=== PATIENT | female | born 1985 | race Caucasian/White ===

== ENCOUNTER 2025-01-12 09:44 | Outpatient (AMB) | payer BC, SELFPAY ==
--- NOTE | 2025-01-12 09:52 | A.OFFVIS_ITS ---
Vital Signs 01/12/25 09:58 Weight 143 lb BP 90/70 Blood Pressure Location Rt brachial Position Sitting Pulse 61 Pulse Source Pulse Oximeter Pulse Oximetry (%) 98 Oxygen Delivery Method Room Air Intake Visit Reasons: ENP - Tremors Intake Note: NPV referred by PCP Josh Abernathy for tremors. Facial twitching and memory issues Glass Blower Required: No Accompanied by: Self / Same As Patient Allergies No Known Allergies Allergy (Verified 01/12/25 09:58) HPI Comments Details: 39y/o Right handed female comes for evaluation of tremors in her hands for about 3 years. she reports at rest action and posture. she also feels twitch in her body when relaxing she started noticing some eyelid twitches 1 year ago and started feeling right face contractions 1 mths ago. she denies voice tremors but says she started stuttering . No leg or head tremors she denies naxiety or depression . she sleeps good. No fh/o tremors No head injury She was trie don propranalol but she did not tolerate it. she works as a school guard -one day she forget her schedule ( is concerned about cognitive issues). she also describes an episode where she forgot that she was helping her with house work . she harsh nxious because she recently realized that people are notcing her tremors now. [facility] Medical History (Updated 01/12/25 @ 10:43 by Adriana Goldman MD) Coarse tremors GERD (gastroesophageal reflux disease) Vitamin D deficiency Tremor Physical Exam Vital Signs: Last Vital Signs Pulse 61 01/12/25 09:58 BP 90/70 01/12/25 09:58 Pulse Ox 98 01/12/25 09:58 Oxygen Delivery Method Room Air 01/12/25 09:58 Const General: cooperative, healthy appearing, comfortable and no acute distress Nutritional Appearance: average body habitus Orientation/consciousness: patient oriented x3 Eyes Pupils: Equal, round and reactive pupils present Neuro Other: mild voice tremors mild postural and action tremors fermín hands General: patient oriented x3, gait normal, tone normal and no focal motor deficits Cranial nerves: Yes Facial sensation intact/muscles of mastication intact, Yes Equal, round and reactive pupils present, Yes Bilaterally intact EOM present, Yes Nystagmus not present, Yes Normal facial strength present, Yes Midline tongue present, Yes Symmetric palate elevation present and Yes Ability to bilaterally elevate shoulders present Cognition (Neuro): normal cognition Gait exam (Neuro): Normal gait present Motor exam (neuro): 5/5 motor strength present throughout and Normal motor muscle tone present throughout Deep tendon reflexes (DTR's): Right triceps reflex intensity grade: 1+, Left triceps reflex intensity grade: 1+, Rt Biceps (C5, C6): 1+, Left biceps reflex intensity grade: 1+, Right brachioradialis reflex intensity grade: 1+, Left brachioradialis reflex intensity grade: 1+ and Right patellar reflex intensity grade: 1+ Coordination: [id number] test normal Psych Appearance: grossly normal Assessment & Plan Assessment & Plan (1) Coarse tremors: Comment: exaggerated physiologicla tremors Code(s): G25.2 - Other specified forms of tremor Category: Medical Plan I will trial her on gabapentin 100mg 1-3 caps qhs Will monitor her facial twitching and cognitive issues clinically CT ayla was normal Medications: New gabapentin 1-3 caps orally bedtime; 90 caps 3RF Coding Level of Care Code New Pt Level 4 (77193) Diagnoses Coarse tremors G25.2
[2025-01-12 09:58] VITALS: BP 90/70; PULSE 61; O2SAT 98
--- OUTSIDE RECORDS SUMMARY | 2025-01-12 10:14 | XMS_ITS | Clinical Summary ---
Author Organization [place] [id number] [address] [facility] Building Address [address] [place] [phone] Phone Care Team Providers Care [employer] Name Role Phone Josh Abernathy MD Primary Care Provider [phone] Allergies No known active allergies Medications levonorgestreL (MIRENA) 21 mcg/24hr (up to 8 yrs) 52 mg IUD 1 Device (1 each total) by intrauterine route 1 (one) time. Active Active Problems Problem Noted Date Diagnosed Date COVID-19 02/10/2021 Overview (06/02/2024): Last Assessment & Plan: DX: 02/10/21 Skin abscess 02/26/2017 Overview (06/02/2024): Recurrent GERD (gastroesophageal reflux disease) 7 Overview (06/02/2024): + H pylori 2009, Negative 2012 Encounters Date Type Department Care Team Description 12/08/2024 8:19 AM EDT - 12/08/2024 11:59 PM EDT Hospital Encounter CT Scan - [address] [phone] Gait instability Discharge Disposition: Home or Self Care 12/07/2024 8:30 AM EDT Office Visit Internal Medicine - [address] [phone] Josh Abernathy MD Adult general medical examination (Primary Dx); Screening for deficiency anemia; Screening for hyperlipidemia; Screening for diabetes mellitus; Screening for thyroid disorder; Gait instability from Last 3 Months Immunizations Name Administration Dates Next Due DTP 1985,1985,1985 DTaP (Infanrix) 6wks to less than 7yo 06/01/1990 ,09/21/1986 [id number] (Pentacel) 2mo to less than 5yo 03/05/1988 Hepatitis B Pediatric (Enger ix B; Recombivax HB) to less than 20 yo 02/21/1997,05/16/1996,03/04/1996 IPV Inactivated polio (Ipol) 6wks and older 06/01/1990,09/21/1986,1985,1984 MMR, measles mumps and rubel la Live (Priorix; M-M-R II) 12mo and older 03/04/1996,09/21/1986 Td Tetanus diptheria (Tdvax) 7yo and older 02/20/1998 Tdap Tetanus diptheria acell ular pertussis (Boostrix; Adacel) 7yo and older 12/07/2024,04/18/2009 Varicella live (Varivax) 12m o and older 04/18/2009 Surgical History Surgery Date Site/Laterality Comments WISDOM TOOTH EXTRACTION PROCEDURE: HISTORICAL WISDOM TEETH EXTRACTION Medical History Medical History Date Comments GERD (gastroesophageal reflux disease) 01/28/2017 DX:GERD (gastroesophageal reflux disease) H/O Clostridium difficile infection 02/26/2017 DX:H/O Clostridium difficile infection Skin abscess 02/26/2017 DX:Skin abscess; COMMENT: Recurrent Family History Medical History Relation Name Comments Breast cancer Aunt 1 paternal, diag in 40's Breast cancer Aunt 2 paternal, dx i n 40's Diabetes Aunt 3 maternal, HTN Diabetes Aunt 4 maternal Diabetes Aunt 5 paternal No Known Problems Daughter Diabetes Maternal Grandmother CAD, HT N, Hyperlipidemia Hypertension Maternal Grandmother Anemia Mother Depression Mother Migraines, fibr omyalgia [Other] No Known Problems Other Breast cancer Paternal Grandmother i n her 70's No Known Problems Son 1 No Known Problems Son 2 No Known Problems Uncle Blindness Neg Hx Cataracts Neg Hx Glaucoma Neg Hx Macular degeneration Neg Hx Strabismus Neg Hx Relation Name Status Comments Aunt 1 Alive Aunt 2 Alive Aunt 3 Alive Aunt 4 Alive Aunt 5 Alive Daughter Maternal Grandmother Alive Mother Alive Other Paternal Grandmother Son 1 Alive Son 2 Alive Uncle Social History Tobacco Use Types Packs/Day Years Used Date Smoking Tobacco: Never Smokeless Tobacco: Never Tobacco Cessation:Counseling Given: Not Answered Alcohol Use Standard Drinks/Week Comments Yes 0 (1 standard drink = 0.6 oz pur e alcohol) Comments No Sex and Gender Information Value Date Recorded Sex Assigned at Not on file Legal Sex Female 1:55 AM EST Gender Identity Not on file Sexual Orientation Not on file Obstetrics History Last Filed Vital Signs Vital Sign Reading Time Taken Comments Blood Pressure 94/68 12/07/2024 8:24 AM EDT Pulse 66 12/07/2024 8:24 AM EDT Temperature - - Respiratory Rate - - Oxygen Saturation - - Inhaled Oxygen Concentration - - Weight 64.7 kg (142 lb 11.2 oz) 12/07/2024 8:24 AM EDT Height 149.9 cm (4' 11 ) 12/07/2024 8:24 AM EDT Body Mass Index 28.82 12/07/2024 8:24 AM EDT Plan of Treatment Upcoming Encounters Date Type Department Care Team (Late st Contact Info) Description 06/12/2025 11:00 AM EST Office Visit Internal Medicine - [address] [phone] Josh Abernathy MD [address] [place] [phone] Health Maintenance Due Date Last Done Comments HIV Screening 05/18/2022 Hepatitis C Screening 05/18/2022 Social Influencers of Health Screening 05/18/2022 COVID-19 Vaccine ( season) 2024 11/14/2020, 10/16/2020 Depression Screening 06/15/2024 06/04/2023 Influenza Vaccine (#1) 2025 Cervical Cancer Screening: HPV 08/26/2028 08/27/2023 Cholesterol Screening (Lipid Panel) 12/07/2029 12/07/2024, 06/05/2023 DTaP,Tdap,and Td Vaccines (9 - Td or Tdap) 12/07/2034 12/07/2024, 04/18/2009, 02/20/1998, Additional history exists HIB Vaccines Completed 03/05/1988 IPV Vaccines Completed 06/01/1990, 02/14, 09/21/1986, Additional history exists MMR Vaccines Completed 03/04/1996, 09/21/1986 Hepatitis B Vaccines Completed 02/21/1997, 05/16/1996, 03/04/1996 Varicella Vaccines Aged Out 04/18/2009 No longer eligible based on patient's age to complete this topic HPV Vaccines Aged Out No longer eligi ble based on patient's age to complete this topic Hepatitis A Vaccines Aged Out No long er eligible based on patient's age to complete this topic Meningococcal ACWY Vaccine Aged Out N o longer eligible based on patient's age to complete this topic Meningococcal B Vaccine Aged Out No l onger eligible based on patient's age to complete this topic Pneumococcal Vaccine: Pediatrics (0 to 5 Years) and At-Risk Patients (6 to 49 Years) Aged Out No longer eligible based on patient's age to complete this topic RSV Immunization Patients Under 20 months Aged Out No longer eligible based on patient's age to complete this topic Procedures Procedure Name Priority Date/Time Associated Diagnosis Comments CT HEAD WO CONTRAST Routine 12/08/2024 8 :29 AM EDT Gait instability COMPLETE BLOOD COUNT Routine 12/07/2024 9:05 AM EDT Screening for deficiency anemia COMPREHENSIVE METABOLIC PANEL Routine 12/07/2024 9:05 AM EDT Screening for diabetes mellitus LIPID PANEL WITH REFLEX TO DIRECT LDL Routine 12/07/2024 9:05 AM EDT Screening for hyperlipidemia THYROID STIMULATING HORMONE WITH REFLEX TO FREE T4 AND FREE T3 Routine 12/07/2024 9:05 AM EDT Screening for thyroid disorder HM HPV Routine 08/27/2023 HM DEPRESSION SCREENING Routine 06/04/2023 from Last 3 Months or Most Recently Relevant to Health Maintenance Results * CT Head wo Contrast (12/08/2024 8:29 AM EDT) Anatomical Region Laterality Modality Head and Neck Computed Tomogra phy 12/08/2024 8:55 AM EDT Impressions 12/09/2024 10:02 AM EDT No evidence of intracranial hemorrhage, acute territorial infarction, mass, or mass effect. POS - [id number] -------- FINAL REPORT -------- Dictated By: Sonali Alvarez Dictated Date: 12/08/2024 08:55 ET Assigned Physician: Sonali Alvarez Reviewed and Electronically Signed By: Sonali Alvarez Signed Date: 12/09/2024 10:02 ET Workstation ID: [id number] Transcribed By: Self Edit Transcribed Date: 12/08/2024 09:07 ET Narrative 12/09/2024 10:02 AM EDT EXAM: HEAD CT HISTORY: Gait instability. Tremor. Dysarthria. COMPARISON: None TECHNIQUE: Nonenhanced head CT from skull base to vertex with multi-planar reformats. Manual dose reduction technique tailored for patient and site of imaging. TOTAL CTDIvol: 67.46 mGy FINDINGS: No evidence of intracranial hemorrhage or an acute territorial infarction. Ya-white matter differentiation appears preserved. No evidence of a mass, mass effect, or midline shift. No hydrocephalus. Basal cisterns are patent. No cerebellar ectopia. Pituitary gland is not enlarged. No acute fracture or destructive bone lesion. Minimal mucosal thickening in the partially imaged ethmoid sinuses.. Mastoid air cells are clear. Procedure Note Sonali Alvarez MD - 12/09/2024 EXAM: HEAD CT HISTORY: Gait instability. Tremor. Dysarthria. COMPARISON: None TECHNIQUE: Nonenhanced head CT from skull base to vertex with multi- planarreformats. Manual dose reduction technique tailored for patient and siteof imaging. TOTAL CTDIvol: 67.46 mGy FINDINGS: No evidence of intracranial hemorrhage or an acute territorial infarction.Ya- white matter differentiation appears preserved. No evidence of a mass, mass effect, or midline shift. No hydrocephalus.Basal cisterns are patent. No cerebellar ectopia. Pituitary gland is notenlarged. No acute fracture or destructive bone lesion. Minimal mucosal thickeningin the partially imaged ethmoid sinuses.. Mastoid air cells are clear. IMPRESSION: No evidence of intracranial hemorrhage, acute territorial infarction,mass, or mass effect. POS - [id number] -------- FINAL REPORT -------- Dictated By: Sonali Alvarez Dictated Date: 12/08/2024 08:55 ET Assigned Physician: Sonali Alvarez Reviewed and Electronically Signed By: Sonali Alvarez Signed Date: 12/09/2024 10:02 ET Workstation ID: [id number] Transcribed By: Self Edit Transcribed Date: 12/08/2024 09:07 ET us Josh Abernathy MD IMG CT PROCEDURES Final Result * Thyroid stimulating hormone with reflex to free t4 and free t3 (12/07/2024 9:05 AM EDT) TSH 1.18 0.40 - 4.00 mcIU/mL LAB CHEMISTRY METHOD 12/07/2024 4:[address] [facility] Blood Venous blood specimen / Unknown Venipuncture / Unknown 12/07/2024 9:05 AM EDT 12/07/2024 9:05 AM EDT us Josh Abernathy MD LAB BLOOD ORDERABLES Final Res ult [facility] [address] [place] [address], [place] [phone] * (ABNORMAL) Lipid panel with reflex to direct LDL (12/07/2024 9:05 AM EDT) Cholesterol 182 0 - 200 mg/dL LAB CHEMISTRY METHOD 12/07/2024 3:[address] [facility] Triglycerides 80 0 - 150 mg/dL LAB CHEMISTRY METHOD 12/07/2024 3:[address] [facility] HDL 52 >=40 mg/dL LAB CHEMISTRY METHOD 12/07/2024 3:[address] [facility] LDL Calculated 114(H) 0 - 100 mg/dL LAB CHEMISTRY METHOD 12/07/2024 3:[address] [facility] VLDL Cholesterol Grupo 16 mg/dL LAB CHEMISTRY METHOD 12/07/2024 3:[address] [facility] Non HDL Chol. (LDL+VLDL) 130 <145 mg/dL LAB CHEMISTRY METHOD 12/07/2024 3:[address] [facility] Chol/HDL Ratio 3.5 0.0 - 4.4 LAB CHEMISTRY METHOD 12/07/2024 3:[address] [facility] Blood Venous blood specimen / Unknown Venipuncture / Unknown 12/07/2024 9:05 AM EDT 12/07/2024 9:05 AM EDT us Josh Abernathy MD LAB BLOOD ORDERABLES Final Res ult [facility] [address] [place] [address], [place] [phone] * (ABNORMAL) Complete blood count (12/07/2024 9:05 AM EDT) WBC 5.5 4.8 - 10.8 K/mcL LAB HEMETOLOGY METHOD 12/07/2024 12:[address] [facility] RBC 5.00(H) 3.80 - 4.80 M/mcL LAB HEMETOLOGY METHOD 12/07/2024 12:[address] [facility] Hemoglobin 13.6 11.5 - 16.0 g/dL LAB HEMETOLOGY METHOD 12/07/2024 12:[address] [facility] Hematocrit 42.8 35.0 - 47.0 % LAB HEMETOLOGY METHOD 12/07/2024 12:[address] [facility] MCV 85.3 79.0 - 98.0 FL LAB HEMETOLOGY METHOD 12/07/2024 12:[address] [facility] MCH 27.1 27.0 - 32.0 pcg LAB HEMETOLOGY METHOD 12/07/2024 12:[address] [facility] MCHC 31.8(L) 32.0 - 37.0 g/dL LAB HEMETOLOGY METHOD 12/07/2024 12:[address] [facility] RDW 13.4 11.0 - 15.0 % LAB HEMETOLOGY METHOD 12/07/2024 12:[address] [facility] Platelets 261 130 - 400 K/mcL LAB HEMETOLOGY METHOD 12/07/2024 12:[address] [facility] MPV 10.3 7.0 - 11.0 FL LAB HEMETOLOGY METHOD 12/07/2024 12:[address] [facility] NRBC 0.0 <1.0 % LAB HEMETOLOGY METHOD 12/07/2024 12:[address] [facility] NRBC Absolute 0.00 <0.10 K/mcL LAB HEMETOLOGY METHOD 12/07/2024 12:[address] [facility] Blood Venous blood specimen / Unknown Venipuncture / Unknown 12/07/2024 9:05 AM EDT 12/07/2024 9:05 AM EDT us Josh Abernathy MD LAB BLOOD ORDERABLES Final Res ult [facility] [address] [place] [address], * Comprehensive metabolic panel (12/07/2024 9:05 AM EDT) Sodium 141 133 - 145 mmol/L LAB CHEMISTRY METHOD 12/07/2024 3:[address] [facility] Potassium 4.1 3.5 - 5.5 mmol/L LAB CHEMISTRY METHOD 12/07/2024 3:29 PM [facility] Chloride 106 96 - 110 mmol/L LAB CHEMISTRY METHOD 12/07/2024 3:29 PM [facility] CO2 27 21 - 32 mmol/L LAB CHEMISTRY METHOD 12/07/2024 3:29 PM [facility] Anion Gap 8 3 - 11 LAB CHEMISTRY METHOD 12/07/2024 3:29 PM [facility] Glucose 92 70 - 100 mg/dL LAB CHEMISTRY METHOD 12/07/2024 3:29 PM [facility] BUN 11 5 - 25 mg/dL LAB CHEMISTRY METHOD 12/07/2024 3:29 PM [facility] Creatinine 0.82 0.50 - 1.10 mg/dL LAB CHEMISTRY METHOD 12/07/2024 3:29 PM [facility] eGFR 93 >=60 mL/min/1. 73m2 LAB CHEMISTRY METHOD 12/07/2024 3:29 PM [facility] Comment:Calculation based on the Chronic Kidney Disease Epidemiology Collaboration (CKD-EPI) equation refit without adjustment for race. BUN/Creatinine Ratio 13.4 LAB CHEMISTRY METHOD 12/07/2024 3:29 PM [facility] Calcium 8.5 8.5 - 10.5 mg/dL LAB CHEMISTRY METHOD 12/07/2024 3:29 PM [facility] AST (SGOT) 12 10 - 42 unit/L LAB CHEMISTRY METHOD 12/07/2024 3:29 PM [facility] ALT (SGPT) 19 10 - 60 unit/L LAB CHEMISTRY METHOD 12/07/2024 3:29 PM [facility] Alkaline Phosphatase 67 42 - 121 unit/L LAB CHEMISTRY METHOD 12/07/2024 3:29 PM [facility] Total Protein 7.2 6.0 - 8.0 g/dL LAB CHEMISTRY METHOD 12/07/2024 3:[address] [facility] Albumin 3.7 3.2 - 5.0 g/dL LAB CHEMISTRY METHOD 12/07/2024 3:[address] [facility] Total Bilirubin 0.7 0.0 - 1.4 mg/dL LAB CHEMISTRY METHOD 12/07/2024 3:[address] [facility] Blood Venous blood specimen / Unknown Venipuncture / Unknown 12/07/2024 9:05 AM EDT 12/07/2024 9:05 AM EDT Josh Abernathy MD LAB BLOOD ORDERABLES Final Res ult [facility] [address] [place] [address], * Cervical Cancer Screening: HPV (08/27/2023) Pathologist [facility] Cervical Cancer Screening: HPV negative, abstracted Historical Provider HEALTH MAINTENANCE Final Result * Depression Screening (06/04/2023) [facility] Depression Screening abstracted Thomas Provider HEALTH MAINTENANCE Final Result from Last 3 Months or Most Recently Relevant to Health Maintenance Insurance [facility] Care Teams [employer] Relationship Specialty Start Date End Date Josh Abernathy MD [address] [place] [id number] PCP - General Internal Medicine 06/01/24
== END 2025-01-12 10:27 | disposition home or self-care (01) ==
LOC: HO.HSMS 09:45
PROVIDERS: PCP Internal Medicine; Visit Provider Psychiatry & Neurology Neurology
DX: G25.2 Other specified forms of tremor (principal)
CPT/HCPCS: 99204